=== PATIENT | female | born 1960 | race Caucasian/White ===

== ENCOUNTER → 2023-05-12 10:47 | Outpatient (REF) | payer BC, SELFPAY | LOC: HWRAD 10:47 | PROVIDERS: ATTENDING PHYSICIAN Family Medicine | DX: R10.11 Right upper quadrant pain (principal); R19.01 Right upper quadrant abdominal swelling, mass and lump | CPT/HCPCS: 74177; Q9967 ==

== ENCOUNTER → 2024-01-31 14:23 | Outpatient (REF) | payer BC, SELFPAY | LOC: HWWDC 14:23 | PROVIDERS: ATTENDING PHYSICIAN Obstetrics & Gynecology Gynecology; FAMILY PHYSICIAN Family Medicine | DX: Z12.31 Encounter for screening mammogram for malignant neoplasm of breast (principal) | CPT/HCPCS: 77063; 77067 ==

== ENCOUNTER → 2024-03-02 09:51 | Outpatient (REF) | payer BC, SELFPAY | LOC: HWRAD 09:51 | PROVIDERS: ATTENDING PHYSICIAN Obstetrics & Gynecology Gynecology; FAMILY PHYSICIAN Family Medicine | DX: Z13.820 Encounter for screening for osteoporosis (principal) | CPT/HCPCS: 77080 ==